=== PATIENT | female | born 1970 | race Caucasian/White ===

== ENCOUNTER → 2020-09-15 | Outpatient (CLI) | payer OTHER ==
--- NOTE | 2020-09-15 15:28 | US ---
EXAMINATION TYPE: US thyroid st tissue head/neck DATE OF EXAM: 09/15/2020 COMPARISON: NONE CLINICAL HISTORY: E04.9 goiter. GLAND SIZE: Right Lobe: 4.7 x 1.3 x 1.7 cm Overall Parenchyma: homogenous Left Lobe: 4.3 x 1.2 x 1.5 cm Overall Parenchyma: homogeneous Isthmus Thickness: 0.25 cm NODULES RIGHT: # of nodules measured on right: 0 LEFT: # of nodules measured on left: 0 ISTHMUS: # of nodules measured in the isthmus: 0 Bilateral neck scanned, no evidence of lymphadenopathy. IMPRESSION: 1. Normal thyroid scan 2017 ACR TI-RADS LEVEL: TR-RADS 1 - BENIGN: No FNA *Highest TI-RADS level nodule reported
== END | disposition home or self-care (01) ==
LOC: RADUSWWP 14:58
PROVIDERS: ATTEND Family Medicine
DX: E04.9 Nontoxic goiter, unspecified (principal)
CPT/HCPCS: 76536

== ENCOUNTER 2024-08-24 06:48 | Day surgery (SDC) | payer OTHER ==
[2024-08-20 10:56] VITALS: BMI 39.4
[~2024-08-24 06:48] MED LIST: LIDOCAINE 1% (10MG/ML) FOR IV START INTRADERMA PRN
[2024-08-24] MEDS ORDERED: ONDANSETRON 4 MG/2 ML VIAL IVP PRN (07:00)
[2024-08-24 07:23] VITALS: RESP 16; TEMP 97.8
[2024-08-24] MEDS: LACTATED RINGERS 1,000 ML IV SCH (07:31)
[2024-08-24] MEDS: IV FLUID CONTINUATION 1,000 ML IV ONE (07:32)
[2024-08-24 07:35] LABS: Glucose,Whole Blood 119 mg/dL (70-110)
[2024-08-24] MEDS ORDERED: LIDOCAINE 2% (PF) 20 MG/ML 5 ML VIAL ONE (07:44)
[2024-08-24] MEDS ORDERED: PROPOFOL 10 MG/ML 20 ML VIAL IV ONE (07:44)
--- NOTE | 2024-08-24 08:20 | P.PCN ---
Date of Procedure: 08/24/24 Procedure(s) Performed: Brief history: Patient is a pleasant 54-year-old white female scheduled for an elective upper endoscopy as well as colonoscopy as a part of evaluation of intermittent episodes of nausea vomiting and change in bowel habits for the last several years duration. Patient has longstanding history of diabetes mellitus diagnosed at age 4. Procedure performed: Esophagogastroduodenoscopy with biopsy Colonoscopy with biopsy Preoperative diagnosis: Abdominal pain, nausea vomiting Change in bowel habits Anesthesia: MAC Procedure: After informed consent was obtained from the patient was brought into the endoscopy unit and IV sedation was administered by anesthesia under continuous monitoring. Initially upper endoscopy was done. The Olympus GF 160 video endoscope was inserted inserted into the mouth and esophagus intubated without any difficulty and was gradually advanced into the stomach and duodenum and carefully examined. The bulb and second part of the duodenum appeared normal. Biopsies were done from the duodenum rule out celiac disease. The scope was then withdrawn into the stomach adequately insufflated with air and upon careful examination the antrum had mild gastritis and biopsies were done from this area. Mucosa of the body, cardia and fundus appeared normal. The scope was then withdrawn into the esophagus. The GE junction was located at 40 cm to the incisors. Small hiatal hernia noted. There was circumferential erythema of the GE junction with 2 superficial erosions consistent with LA grade B reflux esophagitis. Rest of the esophagus appeared normal. Patient tolerated the procedure well. At this time the patient continued to remain sedation. Initial digital rectal examination was normal. Olympus CF 160 video colonoscope was then inserted into the rectum and gradually advanced to the cecum without any difficulty. Careful examination was performed as the scope was gradually being withdrawn. The prep was excellent. The cecum appeared normal. The ascending colon there was a 5 mm polyp that was removed by cold biopsy. Rest of the, ascending colon, transverse colon, descending colon, sigmoid colon and rectum appeared normal. The sigmoid colon there was a 3 mm polyp that was removed by cold biopsy. Random biopsies were also done from the transverse colon and descending colon rule out microscopic/collagenous colitis. Retroflexion was performed in the rectum and no lesions were noted. Patient tolerated the procedure well. Impression: 1. Upper endoscopy revealed mild gastritis, small hiatal hernia and LA grade B reflux esophagitis 2. Colonoscopy revealed a 5 mm ascending colon polyp status post cold biopsy and a 3 mm sigmoid colon polyp status post cold biopsy Recommendations: Findings of this examination were discussed with the patient as well as her family. She was advised to follow-up with the biopsy results. If the biopsy reveals adenoma she can have repeat colonoscopy in 5 years. Follow-up in the office in 2 weeks.
[2024-08-24 08:53] VITALS: BP 117/78; PULSE 80
== END 2024-08-24 09:50 | disposition home or self-care (01) ==
LOC: ORWHC2ENDO 06:48
PROVIDERS: ATTEND Internal Medicine Gastroenterology
DX: K29.50 Unspecified chronic gastritis without bleeding (principal); D12.2 Benign neoplasm of ascending colon; K44.9 Diaphragmatic hernia without obstruction or gangrene; K21.00 Gastro-esophageal reflux disease with esophagitis, without bleeding; E11.9 Type 2 diabetes mellitus without complications; I10 Essential (primary) hypertension; F32.A Depression, unspecified; E66.9 Obesity, unspecified; K31.84 Gastroparesis; Z68.33 Body mass index [BMI] 33.0-33.9, adult; Z88.2 Allergy status to sulfonamides; Z88.8 Allergy status to other drugs, medicaments and biological substances; Z88.9 Allergy status to unspecified drugs, medicaments and biological substances; Z88.1 Allergy status to other antibiotic agents; Z79.84 Long term (current) use of oral hypoglycemic drugs; Z79.899 Other long term (current) drug therapy
CPT/HCPCS: 81025; 88305; 45380; 43239; J2704; J2003; 45385